=== PATIENT | male | born 1995 | race Two or more races ===

== ENCOUNTER 2019-02-28 14:10 | Emergency (ER) | payer SELFPAY ==
[~2019-02-28] VITALS: Ht 175.3 cm; Wt 72.6 kg
[2019-02-28 14:26] VITALS: BP 130/68
[2019-02-28] MEDS ORDERED: FLUORESCEIN SODIUM OPHTH 1 EA STRIP ONE (14:39)
--- NOTE | 2019-02-28 14:52 | NUR ---
Patient discharged to home in stable condition. Written and verbal after care instructions given. Patient verbalizes understanding of instruction.
[2019-02-28] MEDS ORDERED: TETRACAINE HCL 0.5% OPHTALMIC 15 ML BOTTLE OP ONE (15:00)
[2019-02-28] MEDS ORDERED: FLUORESCEIN SODIUM OPHTH 1 EA STRIP OP ONE (15:00)
== END 2019-02-28 15:01 | disposition home or self-care (01) ==
LOC: ER 14:17
DX: H57.89 Other specified disorders of eye and adnexa (principal); H57.11 Ocular pain, right eye